=== PATIENT | male | born 1970 | race Caucasian/White ===

== ENCOUNTER 2016-11-05 23:16 | Emergency (ER) | payer OTHER, SELFPAY ==
[~2016-11-05] VITALS: Ht 165.1 cm; Wt 57.9 kg
[2016-11-06] MEDS ORDERED: CLINDAMYCIN PMX 900MG/50ML 50 ML IVPB ONE
[2016-11-06] MEDS ORDERED: SODIUM CHLORIDE FLUSH 10ML SYR IVF ONE
[2016-11-06] MEDS ORDERED: SODIUM CHLORIDE 0.9% 1,000ML IVBOLUS ONE
[2016-11-06] MEDS ORDERED: CLINDAMYCIN PMX 900MG/50ML 50 ML ONE (00:17)
[2016-11-06 00:23] LABS: HEMATOCRIT 39.9 % (39.2-51.8); HEMOGLOBIN 13.5 g/dL (13.7-18.0); WHITE BLOOD COUNT 11.4 x10^3/uL (3.4-10)
[2016-11-06 00:45] LABS: BLOOD UREA NITROGEN 11 mg/dL (7-18)
[2016-11-06 01:46] VITALS: BP 132/86
== END 2016-11-06 02:49 | disposition home or self-care (01) ==
LOC: ED 23:59
DX: L03.114 Cellulitis of left upper limb (principal)
CPT/HCPCS: 36415; 80048; 82040; 85025; 96361; 96365; 96366; 99285; J7030